=== PATIENT | male | born 1940 | race Caucasian/White ===

== ENCOUNTER 2022-01-14 02:59 | Inpatient (IN) | payer MEDICARE ==
[~2022-01-14] VITALS: Ht 177.8 cm; Wt 69.8 kg
[2022-01-14 03:19] LABS: BASOPHILS % (AUTO) 0.8 % (0.0-5.0); EOSINOPHILS % (AUTO) 4.7 % (0.0-8.0); HEMATOCRIT 41.3 % (42-54); LYMPHOCYTES % (AUTO) 17.3 % (21.0-51.0); MEAN CORPUSCULAR HGB CONC 31.5 g/dL (32.0-36.0); MEAN CORPUSCULAR VOLUME 82.6 fL (79-99); MONOCYTES % (AUTO) 11.4 % (3.0-13.0); NEUTROPHILS % (AUTO) 65.3 % (40.0-77.0); PLATELET COUNT (AUTO) 141 K/uL (130-400); RED CELL DISTRIBUTION WIDTH 15.5 % (11.0-15.5); WHITE BLOOD COUNT (AUTO) 6.7 K/uL (4.8-10.8)
[2022-01-14] MEDS ORDERED: METO25TA6 PO (03:20)
[2022-01-14] MEDS ORDERED: LEVO75CA5 PO (03:23)
[2022-01-14] MEDS ORDERED: LISI10TA24 PO (03:23)
[2022-01-14] MEDS ORDERED: ATOR40TA71 PO (03:23)
[2022-01-14 03:36] LABS: INR 0.96 (0.85-1.15); PROTHROMBIN TIME 10.5 SEC (9.6-11.6)
[2022-01-14 03:37] LABS: PARTIAL THROMBOPLASTIN TIME 26.5 SEC (26.3-35.5)
[2022-01-14 03:38] LABS: POTASSIUM 4.2 mmol/L (3.5-5.1)
[2022-01-14 03:43] LABS: ALBUMIN 3.5 g/dL (3.5-5.0); BILIRUBIN,TOTAL 0.4 mg/dL (0.2-1.0); TOTAL PROTEIN, SERUM 6.4 g/dL (6.0-8.3)
[2022-01-14 03:46] LABS: B-TYPE NATRIURETIC PEPTIDE 214 pg/mL (0-100)
[2022-01-14] MEDS ORDERED: NITROGLYCERIN 0.4 MG SL TAB SL ONE ×2 (03:58→04:00)
[2022-01-14] MEDS ORDERED: MORPHINE 2 MG SYG ONE (03:59)
[2022-01-14] MEDS ORDERED: ASPIRIN 325MG TAB PO ONE (04:00)
[2022-01-14] MEDS ORDERED: ONDANSETRON 4MG INJ IVP ONE ×2 (04:00)
[2022-01-14] MEDS ORDERED: ACETAMINOPHEN 325 MG TAB PO PRN (04:00)
[2022-01-14] MEDS ORDERED: ONDANSETRON 4MG INJ IV PRN (04:00)
[2022-01-14] MEDS ORDERED: MORPHINE 2 MG SYG IVP ONE (04:00)
[2022-01-14] MEDS ORDERED: ONDANSETRON 4MG INJ ONE (04:01)
[2022-01-14] MEDS: NITROGLYCERIN 1GM OINT 1 INCH/1GM TD SCH ×2 (04:16→12:32)
[2022-01-14] MEDS ORDERED: 0.9% NACL 500ML IV.SOLN 500 ML IV SCH (05:30)
[2022-01-14] MEDS ORDERED: IOHEXOL 350 MG/ML 100ML INFUS..BTL IV ONE (05:30)
[2022-01-14 08:00] VITALS: BP 112/56
[2022-01-14] MEDS: ASPIRIN 81MG CHEW TAB PO SCH (08:07)
[2022-01-14] MEDS: LISINOPRIL 10 MG TABLET PO SCH (08:08)
[2022-01-14] MEDS: FAMOTIDINE 20MG VIAL IV SCH (08:08)
[2022-01-14] MEDS: ENOXAPARIN SODIUM 40 MG/0.4 ML SYRINGE SQ SCH (08:09)
[2022-01-14] MEDS ORDERED: LEVOTHYROXINE 75 MCG TABLET PO SCH (08:23)
[2022-01-14 12:00] VITALS: BP 116/60
[2022-01-14 16:00] VITALS: BP 98/49
[2022-01-14] MEDS ORDERED: IRON SUCROSE COMPLEX 100 MG/5 ML VIAL IVP SCH (17:00)
[2022-01-14] MEDS ORDERED: IRON SUCROSE COMPLEX 100 MG in 0.9%NACL 50ML 50 ML IV SCH (17:00)
[2022-01-14] MEDS ORDERED: ATORVASTATIN 40 MG TABLET PO SCH (17:00)
[2022-01-14] MEDS ORDERED: ISOSORBIDE MONO 60MG SR TAB PO SCH (17:00)
[2022-01-14 19:57] VITALS: BP 92/46
[2022-01-14] MEDS: ISOSORBIDE MONO 60MG SR TAB PO SCH (20:00)
[2022-01-14] MEDS: ATORVASTATIN 40 MG TABLET PO SCH ×2 (20:11→21:00)
[2022-01-14] MEDS: IRON SUCROSE COMPLEX 100 MG/5 ML VIAL IVP SCH (20:11)
[2022-01-14 23:33] VITALS: BP 97/57
[2022-01-15 03:46] VITALS: BP 96/49
[2022-01-15 04:14] LABS: BASOPHILS % (AUTO) 0.5 % (0.0-5.0); EOSINOPHILS % (AUTO) 2.7 % (0.0-8.0); HEMATOCRIT 33.4 % (42-54); LYMPHOCYTES % (AUTO) 14.2 % (21.0-51.0); MEAN CORPUSCULAR HEMOGLOBIN 25.8 pg (27.0-33.0); MEAN CORPUSCULAR HGB CONC 31.1 g/dL (32.0-36.0); MEAN CORPUSCULAR VOLUME 82.9 fL (79-99); MONOCYTES % (AUTO) 11.7 % (3.0-13.0); NEUTROPHILS % (AUTO) 70.4 % (40.0-77.0); PLATELET COUNT (AUTO) 109 K/uL (130-400); RED BLOOD CELL COUNT(AUTO) 4.03 MIL/uL (4.50-6.20); RED CELL DISTRIBUTION WIDTH 15.2 % (11.0-15.5); WHITE BLOOD COUNT (AUTO) 5.6 K/uL (4.8-10.8)
[2022-01-15 04:48] LABS: MAGNESIUM 2.1 mg/dL (1.80-2.40); PHOSPHORUS 3.4 mg/dL (2.5-4.9); POTASSIUM 4.3 mmol/L (3.5-5.1)
[2022-01-15] MEDS: LEVOTHYROXINE 75 MCG TABLET PO SCH ×2 (05:51→06:03)
[2022-01-15 08:02] VITALS: BP 128/62
[2022-01-15] MEDS: ASPIRIN 81MG CHEW TAB PO SCH (09:00)
[2022-01-15] MEDS: ISOSORBIDE MONO 60MG SR TAB PO SCH (09:00)
[2022-01-15] MEDS ORDERED: REGADENOSON 0.4 MG/5 ML PF SYG IVP SCH (09:00)
[2022-01-15] MEDS: FAMOTIDINE 20MG VIAL IV SCH (09:00)
[2022-01-15] MEDS: ENOXAPARIN SODIUM 40 MG/0.4 ML SYRINGE SQ SCH (09:00)
[2022-01-15] MEDS: LISINOPRIL 10 MG TABLET PO SCH (09:00)
[2022-01-15 12:00] VITALS: BP 139/76
[2022-01-15 16:00] VITALS: BP 138/68
[2022-01-15 18:56] VITALS: BP 147/67
[2022-01-15] MEDS: IRON SUCROSE COMPLEX 100 MG/5 ML VIAL IVP SCH (20:07)
[2022-01-15] MEDS: ATORVASTATIN 40 MG TABLET PO SCH (20:07)
[2022-01-15 22:53] VITALS: BP 136/73
[2022-01-16 04:14] VITALS: BP 106/57
[2022-01-16] MEDS: LEVOTHYROXINE 75 MCG TABLET PO SCH (05:47)
[2022-01-16 08:00] VITALS: BP 136/75
[2022-01-16] MEDS: ASPIRIN 81MG CHEW TAB PO SCH (08:20)
[2022-01-16] MEDS: ISOSORBIDE MONO 60MG SR TAB PO SCH (08:20)
[2022-01-16] MEDS: FAMOTIDINE 20MG VIAL IV SCH (08:20)
[2022-01-16] MEDS: LISINOPRIL 10 MG TABLET PO SCH (08:21)
[2022-01-16] MEDS: ENOXAPARIN SODIUM 40 MG/0.4 ML SYRINGE SQ SCH (08:22)
[2022-01-16 11:41] VITALS: BP 149/75
[2022-01-16 16:00] VITALS: BP 128/68
[2022-01-16 19:24] VITALS: BP 127/63
[2022-01-16] MEDS: IRON SUCROSE COMPLEX 100 MG/5 ML VIAL IVP SCH (21:01)
[2022-01-16] MEDS: ATORVASTATIN 40 MG TABLET PO SCH (21:01)
[2022-01-16 23:16] VITALS: BP_SYST 103; BP_SYST 144; BP_DIAS 48; BP_DIAS 77
[2022-01-17 03:50] VITALS: BP 128/72
[2022-01-17 04:24] LABS: CREATININE 0.8 mg/dL (0.5-1.5); HEMATOCRIT 35.9 % (42-54); MEAN CORPUSCULAR HEMOGLOBIN 26.4 pg (27.0-33.0); MEAN CORPUSCULAR VOLUME 82.5 fL (79-99); POTASSIUM 3.9 mmol/L (3.5-5.1); RED BLOOD CELL COUNT(AUTO) 4.35 MIL/uL (4.50-6.20); RED CELL DISTRIBUTION WIDTH 15.3 % (11.0-15.5); WHITE BLOOD COUNT (AUTO) 5.6 K/uL (4.8-10.8)
[2022-01-17 04:34] LABS: PROTHROMBIN TIME 10.9 SEC (9.6-11.6)
[2022-01-17 04:35] LABS: PARTIAL THROMBOPLASTIN TIME 29.9 SEC (26.3-35.5)
[2022-01-17] MEDS: LEVOTHYROXINE 75 MCG TABLET PO SCH (05:50)
[2022-01-17 07:52] VITALS: BP 112/68
[2022-01-17] MEDS: ISOSORBIDE MONO 60MG SR TAB PO SCH (07:54)
[2022-01-17] MEDS: FAMOTIDINE 20MG VIAL IV SCH (07:54)
[2022-01-17] MEDS: ASPIRIN 81MG CHEW TAB PO SCH (07:54)
[2022-01-17] MEDS: LISINOPRIL 10 MG TABLET PO SCH (07:54)
[2022-01-17] MEDS: ENOXAPARIN SODIUM 40 MG/0.4 ML SYRINGE SQ SCH (07:54)
[2022-01-17] MEDS ORDERED: NITROGLYCERIN 50MG VIAL ONE (08:00)
[2022-01-17] MEDS ORDERED: HEPARIN 10,000 UNIT/10ML (1,000 UNIT/ML) VIAL ONE (08:00)
[2022-01-17] MEDS ORDERED: IOHEXOL-350 75 ML VIAL IV ONE ×2 (08:00→09:00)
[2022-01-17] MEDS ORDERED: LIDOCAINE HCL 400MG/20ML VIAL ONE (08:00)
[2022-01-17] MEDS ORDERED: IOHEXOL-350 50ML VIAL IV ONE (08:00)
[2022-01-17] MEDS ORDERED: FENTANYL CITRATE PF 50 MCG/1 ML 2ML VIAL ONE (08:22)
[2022-01-17] MEDS ORDERED: MIDAZOLAM HCL 1 MG/ML 2ML VIAL ONE (08:22)
[2022-01-17] MEDS ORDERED: 0.9%NACL 1000ML 1,000 ML IV SCH (10:00)
[2022-01-17] MEDS ORDERED: DEXTROSE 50%-WATER 50 ML DISP.SYRIN IV PRN (10:00)
[2022-01-17] MEDS ORDERED: GLUCAGON 1MG KIT 1 MG ML IM PRN (10:00)
[2022-01-17] MEDS: RANOLAZINE 500 MG TAB.SR.12H PO SCH ×2 (10:48→20:24)
[2022-01-17 11:00] VITALS: BP 140/68
[2022-01-17 12:00] VITALS: BP 141/71
[2022-01-17 16:00] VITALS: BP 122/57
[2022-01-17 19:21] VITALS: BP 129/72
[2022-01-17] MEDS: ATORVASTATIN 40 MG TABLET PO SCH (20:24)
[2022-01-18 00:21] VITALS: BP 129/65
[2022-01-18 03:21] VITALS: BP 129/71
[2022-01-18 04:29] LABS: HEMATOCRIT 35.9 % (42-54); MEAN CORPUSCULAR HEMOGLOBIN 25.5 pg (27.0-33.0); MEAN CORPUSCULAR HGB CONC 30.9 g/dL (32.0-36.0); MEAN CORPUSCULAR VOLUME 82.3 fL (79-99); RED BLOOD CELL COUNT(AUTO) 4.36 MIL/uL (4.50-6.20); RED CELL DISTRIBUTION WIDTH 15.5 % (11.0-15.5); WHITE BLOOD COUNT (AUTO) 5.8 K/uL (4.8-10.8)
[2022-01-18 04:42] LABS: CREATININE 0.8 mg/dL (0.5-1.5)
[2022-01-18] MEDS: LEVOTHYROXINE 75 MCG TABLET PO SCH (05:45)
[2022-01-18 08:00] VITALS: BP 136/71
[2022-01-18] MEDS: ENOXAPARIN SODIUM 40 MG/0.4 ML SYRINGE SQ SCH (09:17)
[2022-01-18] MEDS: ASPIRIN 81MG CHEW TAB PO SCH (09:17)
[2022-01-18] MEDS: LISINOPRIL 10 MG TABLET PO SCH (09:18)
[2022-01-18] MEDS: FAMOTIDINE 20MG VIAL IV SCH (09:18)
[2022-01-18] MEDS: RANOLAZINE 500 MG TAB.SR.12H PO SCH (09:18)
[2022-01-18] MEDS: ISOSORBIDE MONO 60MG SR TAB PO SCH (09:18)
[2022-01-18] MEDS ORDERED: AEC81 PO (11:12)
[2022-01-18] MEDS ORDERED: LEVO100C4 PO (11:12)
[2022-01-18] MEDS ORDERED: RANO500T2 PO (11:12)
== END 2022-01-18 12:01 | disposition home or self-care (01) | DRG 286 ==
LOC: EDH 02:59 → OBSVTOIN 03:56 → EDHIP 03:56 → 2DH 06:45
PROVIDERS: ADMIT Internal Medicine; ATTEND Internal Medicine
PROC: 4A02XM4 Measurement of Cardiac Total Activity, External Approach (ICD-10-PCS; 2022-01-15)
PROC: 3E073KZ Introduction of Other Diagnostic Substance into Coronary Artery, Percutaneous Approach (ICD-10-PCS; 2022-01-15)
PROC: 4A023N7 Measurement of Cardiac Sampling and Pressure, Left Heart, Percutaneous Approach (ICD-10-PCS; principal; 2022-01-17)
PROC: B2111ZZ Fluoroscopy of Multiple Coronary Arteries using Low Osmolar Contrast (ICD-10-PCS; 2022-01-17)
PROC: B2181ZZ Fluoroscopy of Left Internal Mammary Bypass Graft using Low Osmolar Contrast (ICD-10-PCS; 2022-01-17)
PROC: B2131ZZ Fluoroscopy of Multiple Coronary Artery Bypass Grafts using Low Osmolar Contrast (ICD-10-PCS; 2022-01-17)
DX: I25.110 Atherosclerotic heart disease of native coronary artery with unstable angina pectoris (principal); I50.33 Acute on chronic diastolic (congestive) heart failure; I10 Essential (primary) hypertension; E78.5 Hyperlipidemia, unspecified; I71.4 Abdominal aortic aneurysm, without rupture; I73.9 Peripheral vascular disease, unspecified; E03.9 Hypothyroidism, unspecified; D50.9 Iron deficiency anemia, unspecified; Z95.1 Presence of aortocoronary bypass graft; Z85.038 Personal history of other malignant neoplasm of large intestine; Z79.82 Long term (current) use of aspirin; Z79.899 Other long term (current) drug therapy; Z87.891 Personal history of nicotine dependence
CPT/HCPCS: 36415; 71045; 71275; 78452; 80048; 80053; 80061; 82550; 83735; 83880; 84100; 84439; 84443; 84481; 84484; 85025; 85027; 85610; 85730; 93005; 93017; 93455; 96374; 99156; 99157; A9500; C1769; C1894; G0378; J1644; J1650; J1756; J2250; J2405; J2785; J3010; J3490; J7030; Q9967

== ENCOUNTER → 2022-03-31 | Outpatient (CLI) | payer MEDICARE ==
[~2022-03-31] MED LIST: AEC81 PO; ATOR40TA71 PO; LEVO100C4 PO; LISI10TA24 PO; RANO500T2 PO
[2022-03-31 12:37] LABS: BASOPHILS % (AUTO) 0.7 % (0.0-5.0); EOSINOPHILS % (AUTO) 4.3 % (0.0-8.0); HEMATOCRIT 44.9 % (42-54); LYMPHOCYTES % (AUTO) 11.8 % (21.0-51.0); MEAN CORPUSCULAR HEMOGLOBIN 27.5 pg (27.0-33.0); MEAN CORPUSCULAR HGB CONC 31.8 g/dL (32.0-36.0); MEAN CORPUSCULAR VOLUME 86.3 fL (79-99); MONOCYTES % (AUTO) 12.3 % (3.0-13.0); NEUTROPHILS % (AUTO) 70.4 % (40.0-77.0); PLATELET COUNT (AUTO) 135 K/uL (130-400); RED CELL DISTRIBUTION WIDTH 15.2 % (11.0-15.5); WHITE BLOOD COUNT (AUTO) 5.9 K/uL (4.8-10.8)
[2022-03-31 12:54] LABS: ALBUMIN 3.3 g/dL (3.5-5.0); BILIRUBIN,TOTAL 0.5 mg/dL (0.2-1.0); CREATININE 0.9 mg/dL (0.5-1.5); T4 (THYROXINE) 7.4 ug/dL (4.7-13.3); THYROID STIMULATING HORMONE 1.4 uIU/mL (0.36-3.74); TOTAL PROTEIN, SERUM 6.5 g/dL (6.0-8.3)
[2022-03-31 13:22] LABS: HEMOGLOBIN A1C 5.6 % (4.0-6.0)
== END | disposition home or self-care (01) ==
LOC: LAB 08:53
PROVIDERS: ATTEND Student in an Organized Health Care Education/Training Program
DX: I10 Essential (primary) hypertension (principal); I25.10 Atherosclerotic heart disease of native coronary artery without angina pectoris; E78.5 Hyperlipidemia, unspecified; E03.9 Hypothyroidism, unspecified; I73.9 Peripheral vascular disease, unspecified; I71.4 Abdominal aortic aneurysm, without rupture; Z95.1 Presence of aortocoronary bypass graft; Z79.899 Other long term (current) drug therapy
CPT/HCPCS: 36415; 80053; 80061; 83036; 84436; 84443; 84479; 85025

== ENCOUNTER → 2024-07-01 | Outpatient (CLI) | payer MEDICARE, OTHER | END | disposition home or self-care (01) | LOC: SHCH 07:40 | PROVIDERS: ATTEND Student in an Organized Health Care Education/Training Program | DX: I71.9 Aortic aneurysm of unspecified site, without rupture (principal) | CPT/HCPCS: 93978 ==

== ENCOUNTER → 2024-10-07 | Outpatient (CLI) | payer OTHER | END | disposition home or self-care (01) | LOC: LAB 14:47 | PROVIDERS: ATTEND Student in an Organized Health Care Education/Training Program | DX: E03.9 Hypothyroidism, unspecified (principal) | CPT/HCPCS: 36415; 84439; 84481 ==

== ENCOUNTER → 2024-11-29 | Outpatient (CLI) | payer OTHER ==
[2024-11-29 15:43] LABS: ALBUMIN 3.5 g/dL (3.5-5.0); BILIRUBIN,TOTAL 0.6 mg/dL (0.2-1.0); CREATININE 0.9 mg/dL (0.5-1.3); POTASSIUM 4.3 mmol/L (3.5-5.1)
== END | disposition home or self-care (01) ==
LOC: LAB 13:18
PROVIDERS: ATTEND Student in an Organized Health Care Education/Training Program
DX: I10 Essential (primary) hypertension (principal); R91.8 Other nonspecific abnormal finding of lung field
CPT/HCPCS: 36415; 80053

== ENCOUNTER → 2024-12-03 | Outpatient (CLI) | payer OTHER ==
[~2024-12-03] MED LIST changes: +IOHEXOL-350 75 ML VIAL IV ONE
--- NOTE | 2024-12-03 12:10 | HMCIMG ---
CT CHEST W/WO CONTRAST HISTORY: Cough COMPARISON: None TECHNIQUE: Multiple sequential axial images of the chest were obtained from the thoracic inlet through upper abdomen. Patient was not given contrast through intravenous route. FINDINGS: There are bilateral interstitial fibrosis. There is no evidence of pulmonary nodule or parenchymal disease. No pleural effusion or pericardial effusion is seen. There is no evidence of pneumothorax. There are normal size mediastinal and hilar lymph nodes. The heart is not enlarged. Coronary artery calcifications are seen. Degenerative changes of the thoracolumbar spine are present. There is no evidence of adrenal nodule. IMPRESSION: 1.There are bilateral interstitial fibrosis. . No evidence of pulmonary nodule or effusion is seen. CT was performed with one or more following dose reduction techniques: automated exposure control, adjustment of the mA and kv according to patient's size, or use of a iterative reconstruction technique.
== END | disposition home or self-care (01) ==
LOC: RAH 10:46
PROVIDERS: ATTEND Student in an Organized Health Care Education/Training Program
DX: J84.10 Pulmonary fibrosis, unspecified (principal); I25.10 Atherosclerotic heart disease of native coronary artery without angina pectoris; R05.9 Cough, unspecified; R91.8 Other nonspecific abnormal finding of lung field; M47.815 Spondylosis without myelopathy or radiculopathy, thoracolumbar region
CPT/HCPCS: 71270; Q9967

== ENCOUNTER → 2025-01-28 | Outpatient (CLI) | payer OTHER ==
[~2025-01-28] MED LIST changes: -IOHEXOL-350 75 ML VIAL IV ONE; -LEVO100C4 PO; +LEVO100C5 PO
[2025-01-28 12:55] LABS: THYROID STIMULATING HORMONE 0.03 uIU/mL (0.36-3.74)
== END | disposition home or self-care (01) ==
LOC: LAB 10:08
PROVIDERS: ATTEND Student in an Organized Health Care Education/Training Program
DX: E03.9 Hypothyroidism, unspecified (principal)
CPT/HCPCS: 36415; 84439; 84443; 84481

== ENCOUNTER → 2025-02-27 | Outpatient (CLI) | payer OTHER ==
--- NOTE | 2025-02-27 15:51 | HMCIMG ---
CHEST 2VWS HISTORY: Cough COMPARISON: CTA of the chest from January 14, 2022 FINDINGS: Frontal and lateral projections of the chest were obtained. Mild bilateral pulmonary infiltrates are seen. Round nodule is seen in the right lower lung suggestive of granuloma also seen on previous CT study. Poststernotomy changes are seen. The heart is borderline enlarged. No evidence of aortic calcification is seen. Degenerative changes are seen of the thoracolumbar spine. IMPRESSION: 1. Mild bilateral pulmonary infiltrates. Right lower lung calcified granuloma unchanged.
== END | disposition home or self-care (01) ==
LOC: RAH 13:01
PROVIDERS: ATTEND Nurse Practitioner Adult Health
DX: R91.8 Other nonspecific abnormal finding of lung field (principal); R91.1 Solitary pulmonary nodule; J98.4 Other disorders of lung; R05.9 Cough, unspecified; M47.815 Spondylosis without myelopathy or radiculopathy, thoracolumbar region; Z98.890 Other specified postprocedural states
CPT/HCPCS: 71046